=== PATIENT | male | born 1945 | race Caucasian/White ===

== ENCOUNTER 2021-07-05 16:37 | Inpatient (IN) | payer OTHER, SELFPAY ==
[~2021-07-05] VITALS: Ht 177.8 cm; Wt 81.6 kg
[2021-07-05 16:40] VITALS: BP 160/86
--- NOTE | 2021-07-05 18:23 | NUR ---
PATIENT AMBULATED TO ER BED 12
--- NOTE | 2021-07-05 18:41 | NUR ---
PT C/O SUBSTERNAL CHEST PAIN X2 HOURS, HX OF CARDIAC STENTS. PT DENIES ANY PAIN AT THIS TIME. PENDING LABS. NAD. SAFETY MAINTAINED.
[2021-07-05 18:43] LABS: BASOPHILS % (AUTO) 0.3 % (0.0-2.0); EOSINOPHILS # (AUTO) 0.1 K/uL (0-0.4); EOSINOPHILS % (AUTO) 0.5 % (0.0-4.0); HEMOGLOBIN 15.2 g/dL (12.0-18.0); LYMPHOCYTES # (AUTO) 1.1 K/uL (2.0-11.5); LYMPHOCYTES % (AUTO) 9.2 % (20.5-51.1); MEAN CORPUSCULAR HEMOGLOBIN 32 pg (27-31); MEAN CORPUSCULAR HGB CONC 34 g/dL (33-37); MEAN CORPUSCULAR VOLUME 95.1 fL (80-94); MONOCYTES % (AUTO) 7.8 % (1.7-9.3); NEUTROPHILS # (AUTO) 10.3 K/uL (1.8-7.7); NEUTROPHILS % (AUTO) 82.2 % (42.2-75.2); PLATELET COUNT (AUTO) 194 K/uL (140-450); RED BLOOD CELL COUNT(AUTO) 4.73 MIL/uL (4.20-6.10); RED CELL DISTRIBUTION WIDTH 13.7 % (11.6-13.7); WHITE BLOOD COUNT (AUTO) 12.5 K/uL (4.8-10.8)
[2021-07-05 19:06] LABS: ALBUMIN 5.3 g/dL (3.4-5.0); ANION GAP 14.4 (8-16); ASPARTATE AMINOTRANSFERASE 19 U/L (15-37); CARBON DIOXIDE 26.6 mmol/L (21-32); CHLORIDE 103 mmol/L (98-107); CREATININE 1.4 mg/dL (0.6-1.3); GLUCOSE 110 mg/dL (74-106); SODIUM SERUM 140 mmol/L (136-145); TOTAL BILIRUBIN 0.4 mg/dL (0.0-1.0); UREA NITROGEN, BLOOD 20 mg/dL (7-18)
--- NOTE | 2021-07-05 19:10 | NUR ---
REPORT GIVEN TO BETHANY FONTANA FOR CONTINUATION OF CARE
[2021-07-05] MEDS ORDERED: AZITHROMYCIN 250 MG TAB PO ONE (19:35)
[2021-07-05] MEDS ORDERED: NACL 0.9% 1,000 ML IV ONE (19:35)
[2021-07-05] MEDS ORDERED: ASPIRIN 325 MG TAB PO ONE (19:35)
[2021-07-05] MEDS ORDERED: cefTRIAXone 1,000 MG VIAL ONE (19:50)
--- NOTE | 2021-07-05 23:11 | NUR ---
PT TAKES A MED FOR HIGH CHOLESTEROL BUT CANNOT REMEMBER THE NAME OR DOSE, IN ORDER TO COMPLETE THE MED REC.
--- NOTE | 2021-07-06 06:07 | NUR ---
COVID/BONITA SWAB COLLECTED AND HANDED TO LEVEL GLASS FORMING MACHINE OPERATOR
[2021-07-06] MEDS ORDERED: LOVENOX 1MG/KG Q12H SUBQ SCH (06:40)
--- NOTE | 2021-07-06 06:54 | NUR ---
PATIENT HAS BEEN SCREENED AND CATEGORIZED MODERATE NUTRITION RISK. PATIENT WILL BE SEEN WITHIN 3-5 DAYS OF ADMISSION. 07/09/21-07/11/21 JANE BARR MS, RDN
[2021-07-06] MEDS ORDERED: hePARIN / DEXT 5% PREMIX 250 ML IV SCH (07:00)
[2021-07-06] MEDS ORDERED: HEPARIN PER PHARMACY MC PRN (07:00)
[2021-07-06] MEDS ORDERED: ENOXAPARIN 80 MG/0.8 ML SYR SUBQ SCH (07:00)
[2021-07-06] MEDS ORDERED: NITROGLYCERIN 0.4 MG TAB SL PRN (07:00)
--- NOTE | 2021-07-06 07:24 | NUR ---
Report and continuation of care received from MARIZOL Gomez.
--- NOTE | 2021-07-06 07:24 | NUR ---
GIVEN TRANSFER OF CARE REPORT TO KITA FONTANA
--- NOTE | 2021-07-06 07:35 | NUR ---
Received patient sitting upright in bed with at bedside. Pt denies any chest pain, SOB, dizziness, at this time. Patient A&Ox4, ambulatory, on front desk monitor showing VSS; SpO2 99% on room air; HR 58 strong/regular. Bed locked in lowest position, side rails x 1.
[2021-07-06] MEDS ORDERED: ATOR20TA PO (08:23)
[2021-07-06] MEDS ORDERED: EZET10TA14 PO (08:28)
[2021-07-06] MEDS ORDERED: LIP80 PO (08:28)
[2021-07-06] MEDS ORDERED: ASPI-1749 PO (08:28)
[2021-07-06 08:42] LABS: BASOPHILS # (AUTO) 0.1 K/uL (0.00-0.22); BASOPHILS % (AUTO) 1.3 % (0.0-2.0); EOSINOPHILS # (AUTO) 0.2 K/uL (0-0.4); EOSINOPHILS % (AUTO) 2.4 % (0.0-4.0); HEMOGLOBIN 13.8 g/dL (12.0-18.0); LYMPHOCYTES # (AUTO) 1.9 K/uL (2.0-11.5); LYMPHOCYTES % (AUTO) 27.9 % (20.5-51.1); MEAN CORPUSCULAR HEMOGLOBIN 32 pg (27-31); MEAN CORPUSCULAR HGB CONC 34 g/dL (33-37); MEAN CORPUSCULAR VOLUME 95.9 fL (80-94); MONOCYTES # (AUTO) 0.7 K/uL (0.8-1.0); MONOCYTES % (AUTO) 9.6 % (1.7-9.3); NEUTROPHILS # (AUTO) 4.1 K/uL (1.8-7.7); NEUTROPHILS % (AUTO) 58.8 % (42.2-75.2); PLATELET COUNT (AUTO) 186 K/uL (140-450); RED BLOOD CELL COUNT(AUTO) 4.27 MIL/uL (4.20-6.10); RED CELL DISTRIBUTION WIDTH 13.6 % (11.6-13.7); WHITE BLOOD COUNT (AUTO) 6.9 K/uL (4.8-10.8)
--- NOTE | 2021-07-06 08:57 | NUR ---
Report given to MARIZOL Monroe.
[2021-07-06] MEDS ORDERED: ATORVASTATIN 20 MG TAB PO SCH (09:00)
[2021-07-06] MEDS ORDERED: lisinopriL 5 MG TAB PO SCH (09:00)
[2021-07-06 09:12] LABS: ANION GAP 15.5 (8-16); CHLORIDE 106 mmol/L (98-107); GLUCOSE 88 mg/dL (74-106); POTASSIUM 4.5 mmol/L (3.5-5.1); SODIUM SERUM 141 mmol/L (136-145); UREA NITROGEN, BLOOD 18 mg/dL (7-18)
[2021-07-06 09:20] LABS: CHOL/HDL RATIO 3.5 (1-4.5)
[2021-07-06 09:27] LABS: FREE T4 (FREE THYROXINE) 0.81 ng/dL (0.76-1.46); THYROID STIMULATING HORMONE 3.4 uIU/mL (0.34-3.74)
--- NOTE | 2021-07-06 09:30 | NUR ---
Patient will be admitted to care of Dr. Starkey. Admited to Telemetry. Will go to room 112B. Belongings list completed. Report to MARIZOL Monroe.
[2021-07-06 09:34] VITALS: BP 115/52
--- NOTE | 2021-07-06 09:34 | NUR ---
RECEIVED PATIENT FROM ER NURSE VIA MICAELA. PT ADMITTED FOR NSTEMI. PT IS AOX4, ABLE TO MAKE NEEDS KNOWN. RESPIRATIONS EVEN AND UNLABORED. ON ROOM AIR AND NO DISTRESS NOTED. SKIN IS WARM, DRY, AND INTACT. IV SITE ON RAC 20 G. SALINE LOCKED. INTACT AND PATENT. ABD IS SOFT, FLAT, AND NON-DISTENDED. BOWEL SOUNDS ACTIVE IN ALL QUADRANTS. DENIES PAIN AT THE MOMENT. PLAN OF CARE DISCUSSED. SAFETY PRECAUTIONS IN PLACE. CALL LIGHT WITHIN REACH. WILL CONTINUE TO MONITOR.
[2021-07-06 09:45] LABS: MAGNESIUM 1.9 mg/dL (1.8-2.4); PHOSPHORUS 3.1 mg/dL (2.5-4.9)
[2021-07-06 09:54] LABS: PROTHROMBIN TIME 10.3 secs (10.8-13.4)
[2021-07-06] MEDS: ASPIRIN 81 MG TAB.CHEW PO SCH (10:07)
--- NOTE | 2021-07-06 10:15 | NUR ---
ALL SCHEDULED MEDS GIVEN. PT IS STABLE. NO DISTRESS NOTED. WILL CONTINUE TO MONITOR.
[2021-07-06] MEDS: hePARIN / DEXT 5% PREMIX 250 ML IV SCH (10:41)
[2021-07-06 12:00] VITALS: BP 109/57
--- NOTE | 2021-07-06 13:30 | NUR ---
CHECKED ON PATIENT. PT IS STABLE. NO DISTRESS NOTED. DENIES PAIN AT THE MOMENT. WILL CONTINUE TO MONITOR.
--- NOTE | 2021-07-06 15:45 | NUR ---
DR. SPIVEY AT PATIENT'S BEDSIDE DISCUSSING PLAN OF CARE TO PATIENT.
[2021-07-06 16:00] VITALS: BP 101/57
[2021-07-06] MEDS: AZITHROMYCIN 250 MG TAB PO SCH (18:07)
[2021-07-06] MEDS ORDERED: ACETAMINOPHEN 325 MG TAB PO PRN (18:15)
--- NOTE | 2021-07-06 18:23 | NUR ---
PATIENT COMPLAINED OF HEADACHES 3/10. ADMINISTERED PRN PAIN MEDS PER MD ORDERED.
--- NOTE | 2021-07-06 19:39 | NUR ---
ENDORSED TO CONVEX GRINDER OPERATOR NURSE FOR CONTINUITY OF CARE. PT IS STABLE
--- NOTE | 2021-07-06 19:40 | NUR ---
RECEIVED PT REPORT FROM GARCIA RN FOR CONTINUITY OF CARE. DID PAIN REASSESSMENT ENDORSED BY MINA RN. AT 1830 C/O RODRIGUEZ 7/10 PAIN SCALE. NOW 1940 PAIN 4/10, TYLENOL EFFECTIVE. PT STABLE .
[2021-07-06 20:00] VITALS: BP 101/53
--- NOTE | 2021-07-06 21:30 | NUR ---
ROCEPHIN IVPB INFUSED AFTER NEW IV 20G STARTED IN LFA BY Michi CHARGE NURSE. PT REMAINS ON HEPARIN DRIP AT 9CC/HR. PTT DRAW AT 1800 WAS 46.3 THERAPEUTIC LEVEL. CALL LIGHT IN REACH. ALL NEEDS MET.
[2021-07-07] VITALS (7 sets, daily range): BP systolic 93–111; BP diastolic 44–62
--- NOTE | 2021-07-07 00:11 | NUR ---
PTT DRAWN. RESULTS: 49.7 REMAINS WITHIN THERAPEUTIC RANGE. NOW PTT REDRAW EVERY 24 HRS. NEXT DRAW WILL BE OO:00 07/08/21. NAD ALL PT NEEDS MET. CALL LIGHT WITHIN REACH.
[2021-07-07 06:44] LABS: BASOPHILS # (AUTO) 0.1 K/uL (0.00-0.22); BASOPHILS % (AUTO) 1.1 % (0.0-2.0); EOSINOPHILS # (AUTO) 0.2 K/uL (0-0.4); EOSINOPHILS % (AUTO) 3.2 % (0.0-4.0); HEMATOCRIT 40.8 % (36-52); HEMOGLOBIN 13.8 g/dL (12.0-18.0); LYMPHOCYTES # (AUTO) 1.9 K/uL (2.0-11.5); LYMPHOCYTES % (AUTO) 28.6 % (20.5-51.1); MEAN CORPUSCULAR HEMOGLOBIN 32 pg (27-31); MEAN CORPUSCULAR HGB CONC 34 g/dL (33-37); MEAN CORPUSCULAR VOLUME 95.4 fL (80-94); MONOCYTES # (AUTO) 0.6 K/uL (0.8-1.0); MONOCYTES % (AUTO) 9.8 % (1.7-9.3); NEUTROPHILS # (AUTO) 3.7 K/uL (1.8-7.7); NEUTROPHILS % (AUTO) 57.3 % (42.2-75.2); PLATELET COUNT (AUTO) 178 K/uL (140-450); RED BLOOD CELL COUNT(AUTO) 4.27 MIL/uL (4.20-6.10); RED CELL DISTRIBUTION WIDTH 13.7 % (11.6-13.7); WHITE BLOOD COUNT (AUTO) 6.5 K/uL (4.8-10.8)
[2021-07-07 07:19] LABS: ANION GAP 14.1 (8-16); CHLORIDE 106 mmol/L (98-107); CREATININE 0.9 mg/dL (0.6-1.3); GLUCOSE 106 mg/dL (74-106); POTASSIUM 4.1 mmol/L (3.5-5.1); SODIUM SERUM 140 mmol/L (136-145); UREA NITROGEN, BLOOD 14 mg/dL (7-18)
--- NOTE | 2021-07-07 07:30 | NUR ---
ENDORSED TO AM SHIFT PT REPORT FOR CONTINUITY OF CARE.
--- NOTE | 2021-07-07 07:30 | NUR ---
RECEIVED REPORT FROM ARMATURE WINDER REPAIR HELPER NURSE FOR CONTINUITY OF CARE, POC DISCUSSED. PT IS ON HEP DRIP AT 9CC IN THERAPUTIC RANGE, NEXT PTT SCHEDULED FOR 0000 07/08/21. PT ON ROOM AIR WITH CHEST RISING AND FALLING EVEN AND UNLABORED. PT ON TELE MONITOR. PT SKIN INTACT. AT BEDSIDE. ALL SAFETY MEASURES IN PLACE, CALL LIGHT WITHIN REACH. WILL CONTINUE TO MONITOR.
[2021-07-07] MEDS: ASPIRIN 81 MG TAB.CHEW PO SCH (08:27)
[2021-07-07] MEDS: AZITHROMYCIN 250 MG TAB PO SCH (08:27)
[2021-07-07] MEDS: ATORVASTATIN 20 MG TAB PO SCH (08:27)
[2021-07-07 10:34] LABS: MAGNESIUM 1.8 mg/dL (1.8-2.4); PHOSPHORUS 3.1 mg/dL (2.5-4.9)
--- NOTE | 2021-07-07 10:41 | NUR ---
LEE MEDICATION WAS ADMINISTERED PER MD ORDER. PT TOLERATED ADMINISTRATION. PT SITTING UP IN BED EATING BREAKFAST WITH AT BEDSIDE. PT REPORTS ALL NEEDS CURRENTLY MET. ALL SAFETY MEASURES IN PLACE, CALL LIGHT WITHIN REACH. WILL CONTINUE TO MONITOR.
--- NOTE | 2021-07-07 14:10 | NUR ---
NEW HEP BAG HUNG, AT THE SAME RATE 9ML/HR. ALL QUESTIONS ANSWERED AND ALL NEEDS CURRENTLY MET. ALL SAFETY MEASURES IN PLACE, CALL LIGHT WITHIN REACH. WILL CONTINUE TO MONITOR.
[2021-07-07] MEDS: hePARIN / DEXT 5% PREMIX 250 ML IV SCH (14:11)
--- NOTE | 2021-07-07 15:32 | NUR ---
ALL DOCUMENTS HAVE BEEN FAX TO [facility] IN [facility]
--- NOTE | 2021-07-07 18:02 | NUR ---
PT AND REPORT ALL NEEDS HAVE BEEN MET THROUGHOUT SHIFT. ALL SAFETY MEASURES IN PLACE. CALL LIGHT WITHIN REACH. WILL CONTINUE TO MONITOR.
--- NOTE | 2021-07-07 18:22 | NUR ---
ALL NEEDS HAVE BEEN MET THROUGHOUT SHIFT. ALL QUESTIONS REGARD POC HAS BEEN ANSWERED. PT CARE WILL BE ENDORSED TO BELT SANDER. ALL SAFETY MEASURES AND CALL LIGHT IN PLACE.
--- NOTE | 2021-07-07 19:23 | NUR ---
REPORT FROM RAYSHAWN GONSALES RN AND ROUNDS TO PATIENT. LENNIE MEJIA RN
[2021-07-08] MEDS: hePARIN / DEXT 5% PREMIX 250 ML IV SCH (01:12)
[2021-07-08 04:20] VITALS: BP 111/63
--- NOTE | 2021-07-08 07:00 | NUR ---
HANDOFF WITH MARIZOL STRONG. LENNIE MEJIA RN
--- NOTE | 2021-07-08 07:30 | NUR ---
RECEIVED REPORT FROM CAD DESIGN ENGINEER NURSE FOR CONTINUITY OF CARE, POC DISCUSSED. PT IS ON HEP DRIP AT 1050U/HR. PT ON ROOM AIR, RESP EVEN AND UNLABORED. PT ON TELE MONITOR. PT SKIN INTACT. AT BEDSIDE. ALL SAFETY MEASURES IN PLACE, CALL LIGHT WITHIN REACH. WILL CONTINUE TO MONITOR.
[2021-07-08 08:00] VITALS: BP 106/63
--- NOTE | 2021-07-08 08:50 | NUR ---
DUE MEDS GIVEN. POC DISCUSSED
[2021-07-08] MEDS: AZITHROMYCIN 250 MG TAB PO SCH (09:04)
[2021-07-08] MEDS: ASPIRIN 81 MG TAB.CHEW PO SCH (09:04)
[2021-07-08] MEDS: ATORVASTATIN 20 MG TAB PO SCH (09:04)
--- NOTE | 2021-07-08 10:30 | NUR ---
HEP DRIP TITRATED TO 900U/HR, PER PROTOCOL
--- NOTE | 2021-07-08 12:00 | NUR ---
PICKED UP BY JULIANNA TO [facility] FOR CARDIAC CATH
[2021-07-08 13:56] LABS: BASOPHILS # (AUTO) 0.1 K/uL (0.00-0.22); BASOPHILS % (AUTO) 1.1 % (0.0-2.0); EOSINOPHILS # (AUTO) 0.2 K/uL (0-0.4); EOSINOPHILS % (AUTO) 3.9 % (0.0-4.0); HEMATOCRIT 44.8 % (36-52); LYMPHOCYTES # (AUTO) 2.2 K/uL (2.0-11.5); LYMPHOCYTES % (AUTO) 35.1 % (20.5-51.1); MEAN CORPUSCULAR HEMOGLOBIN 32 pg (27-31); MEAN CORPUSCULAR HGB CONC 33 g/dL (33-37); MEAN CORPUSCULAR VOLUME 96.4 fL (80-94); MONOCYTES # (AUTO) 0.6 K/uL (0.8-1.0); MONOCYTES % (AUTO) 9.3 % (1.7-9.3); NEUTROPHILS # (AUTO) 3.2 K/uL (1.8-7.7); NEUTROPHILS % (AUTO) 50.6 % (42.2-75.2); PLATELET COUNT (AUTO) 202 K/uL (140-450); RED BLOOD CELL COUNT(AUTO) 4.64 MIL/uL (4.20-6.10); RED CELL DISTRIBUTION WIDTH 13.8 % (11.6-13.7); WHITE BLOOD COUNT (AUTO) 6.3 K/uL (4.8-10.8)
[2021-07-08 21:00] VITALS: BP 118/62
--- NOTE | 2021-07-08 21:00 | NUR ---
PATIENT RETURNED FROM [facility] VIA AMBULANCE. NO COMPLICATIONS VERBALIZED. PATIENT AXO X4, AMBULATORY WITHOUT ASSISTANCE, DENIES PAIN/SOB/RESPIRATORY DISTRESS. HAM SAWYER REPLACED AND FUNCTIONING. LISA AT BEDSIDE. HEPARIN CONTINUED AT 900U/HR. PTT DRAWN BY LAB.
[2021-07-09] VITALS: BP 107/58
[2021-07-09 04:00] VITALS: BP 97/59
[2021-07-09] MEDS: hePARIN / DEXT 5% PREMIX 250 ML IV SCH (04:10)
--- NOTE | 2021-07-09 04:10 | NUR ---
HEPARIN DRIP INCREASED TO 1,200U/HR AND HEPARIN 4,500U IVP BOLUS GIVEN FOR PTT 29.7. PTT ORDERED FOR 6HRS LATER AT 10:10 07/09/21.
[2021-07-09 07:09] LABS: BASOPHILS # (AUTO) 0.1 K/uL (0.00-0.22); BASOPHILS % (AUTO) 1.1 % (0.0-2.0); EOSINOPHILS # (AUTO) 0.2 K/uL (0-0.4); EOSINOPHILS % (AUTO) 3.8 % (0.0-4.0); HEMOGLOBIN 14.6 g/dL (12.0-18.0); LYMPHOCYTES # (AUTO) 1.8 K/uL (2.0-11.5); LYMPHOCYTES % (AUTO) 31.2 % (20.5-51.1); MEAN CORPUSCULAR HEMOGLOBIN 32 pg (27-31); MEAN CORPUSCULAR HGB CONC 34 g/dL (33-37); MEAN CORPUSCULAR VOLUME 95.2 fL (80-94); MONOCYTES # (AUTO) 0.6 K/uL (0.8-1.0); MONOCYTES % (AUTO) 10.4 % (1.7-9.3); NEUTROPHILS % (AUTO) 53.5 % (42.2-75.2); PLATELET COUNT (AUTO) 171 K/uL (140-450); RED BLOOD CELL COUNT(AUTO) 4.52 MIL/uL (4.20-6.10); RED CELL DISTRIBUTION WIDTH 13.5 % (11.6-13.7); WHITE BLOOD COUNT (AUTO) 5.7 K/uL (4.8-10.8)
--- NOTE | 2021-07-09 07:10 | NUR ---
RECEIVED PATIENT FROM TOBACCO DRUMMER NURSE FOR CONTINUITY OF CARE. PATIENT IS RESTING IN BED, ON TELE MONITOR, A/A/O X4. RESPIRATORY EVEN AND UNLABORED, ON ROOM AIR. NO SIGN OF DISTRESS NOTED. SKIN WARM, DRY, NON DIAPHORETIC. IV ON RIGHT AC 20G, INTACT AND PATENT, IS INFUSING WITH HEPARIN DRIP @1200 U/HR. IV ON LEFT FA 20G, INTACT AND PATENT, SALINE LOCK. PATIENT DENIES ANY CHEST PAIN OR DISCOMFORT. ABLE TO MAKE NEED KNOWN. PLAN OF CARE DISCUSSED, PATIENT VERBALIZED UNDERSTANDING. CALL LIGHT WITHIN REACH. WILL CONTINUE TO MONITOR.
[2021-07-09 08:00] VITALS: BP 97/58
[2021-07-09] MEDS: AZITHROMYCIN 250 MG TAB PO SCH (08:17)
[2021-07-09] MEDS: ATORVASTATIN 20 MG TAB PO SCH (08:17)
[2021-07-09] MEDS: ASPIRIN 81 MG TAB.CHEW PO SCH (08:17)
--- NOTE | 2021-07-09 08:17 | NUR ---
SCHEDULE MEDICATIONS GIVEN WITH EDUCATION, PATIENT VERBALIZED UNDERSTANDING. PATIENT TOLERATED WELL. CALL LIGHT WITHIN REACH. WILL CONTINUE TO MONITOR.
[2021-07-09] MEDS ORDERED: CLOP75TA26 PO (10:09)
[2021-07-09] MEDS ORDERED: NITR0.4T2 SL (10:12)
--- NOTE | 2021-07-09 10:50 | NUR ---
A/A/O X4, RESPIRATORY EVEN AND UNLABORED, ON ROOM AIR. DISCHARGE EDUCATION GIVEN WITH HANDOUT. PATIENT VERBALIZED UNDERSTANDING. IV REMOVED, BLEEDING CONTROL. NO SIGN OF DISTRESS NOTED.
--- NOTE | 2021-07-09 11:08 | NUR ---
PT DC WITH FAMILY MEMBER, AMBULATE WITH STEADY GAIT, INDEPENDENTLY.
== END 2021-07-09 11:08 | disposition home or self-care (01) | DRG 280 ==
LOC: MED 16:37 → MMU 22:51 → MTU 07-06 08:59
PROVIDERS: ADMIT General Practice; ATTEND General Practice
DX: I21.4 Non-ST elevation (NSTEMI) myocardial infarction (principal); N17.0 Acute kidney failure with tubular necrosis; Z20.822 Contact with and (suspected) exposure to COVID-19; I25.10 Atherosclerotic heart disease of native coronary artery without angina pectoris; E78.5 Hyperlipidemia, unspecified; I10 Essential (primary) hypertension; Z95.9 Presence of cardiac and vascular implant and graft, unspecified; Z88.2 Allergy status to sulfonamides; Z79.82 Long term (current) use of aspirin; Z79.899 Other long term (current) drug therapy
CPT/HCPCS: 36415; 71045; 80048; 80053; 83036; 83735; 83880; 84100; 84439; 84443; 84479; 84484; 85025; 85610; 85730; 87081; 93005; 96361; 96365; 99285; J0696; J1644; J7060